=== PATIENT | male | born 1985 | race Two or more races ===

== ENCOUNTER 2019-12-12 17:07 | Emergency (ER) | payer SELFPAY ==
[~2019-12-12] VITALS: Ht 170.2 cm; Wt 59.0 kg
[2019-12-12 17:11] VITALS: BP 119/74
== END 2019-12-12 18:14 | disposition home or self-care (01) ==
LOC: ER 17:07
DX: J02.9 Acute pharyngitis, unspecified (principal); R07.89 Other chest pain; R06.02 Shortness of breath
CPT/HCPCS: 99283

== ENCOUNTER 2020-12-30 02:28 | Emergency (ER) | payer SELFPAY ==
[~2020-12-30] VITALS: Ht 167.6 cm; Wt 60.4 kg
[2020-12-30] MEDS ORDERED: ONDANSETRON HCL 4MG/2ML INJ IV STA (03:08)
[2020-12-30] MEDS ORDERED: KETOROLAC 30MG/ML VIAL IV STA (03:08)
[2020-12-30] MEDS ORDERED: SODIUM CHLORIDE 0.9% 1,000 ML IV ONE (03:15)
[2020-12-30 03:29] LABS: BASOPHILS % 0.5 % (0.0-2.0); EOSINOPHILS % 2.1 % (0.0-5.0); HEMATOCRIT. 43.2 % (42.0-52.0); LYMPHOCYTES % 21.6 % (20.0-50.0); MEAN CORPUSCULAR HEMOGLOBIN 26.8 pg (28.0-32.0); MEAN CORPUSCULAR VOLUME 77.2 fL (80.0-94.0); MEAN PLATELET VOLUME 8.4 fl (7.4-10.4); MONOCYTES % 7.3 % (2.0-8.0); NEUTROPHILS % 68.5 % (40.0-76.0); PLATELET 297 x1000/uL (130-400); RED CELL DISTRIBUTION WIDTH 12.8 % (11.6-14.6)
[2020-12-30 03:42] LABS: CHLORIDE 102 mEq/L (98-107)
[2020-12-30] MEDS ORDERED: IBUP-2029 MT (05:04)
[2020-12-30] MEDS ORDERED: TAMS-11 MT (05:04)
[2020-12-30 05:23] LABS: CLARITY URINE CLEAR (CLEAR); COLOR URINE YELLOW (YELLOW); KETONES URINE NEGATIVE (NEGATIVE); LEUKOCYTE ESTERASE URINE TRACE (NEGATIVE); NITRITE URINE NEGATIVE (NEGATIVE); OCCULT BLOOD URINE 2+ (NEGATIVE); PH URINE 7.5 (4.5-8.0); PROTEIN URINE NEGATIVE (NEGATIVE); SPECIFIC GRAVITY URINE 1.007 (1.005-1.030); UROBILINOGEN URINE 0.2 E.U./dL (0.2-1.0)
[2020-12-30 05:50] VITALS: BP 129/69
== END 2020-12-30 06:23 | disposition home or self-care (01) ==
LOC: ER 02:28
DX: N13.2 Hydronephrosis with renal and ureteral calculous obstruction (principal); Z90.49 Acquired absence of other specified parts of digestive tract
CPT/HCPCS: 36415; 74176; 80053; 81003; 83690; 85025; 96361; 96374; 96375; 99284; J1885; J2405; J7030

== ENCOUNTER 2021-02-26 16:44 | Emergency (ER) | payer OTHER ==
[~2021-02-26] VITALS: Ht 165.1 cm; Wt 60.0 kg
[~2021-02-26 16:44] MED LIST: IBUP-2029 MT; TAMS-11 MT
[2021-02-26] MEDS ORDERED: KETOROLAC 60MG/2ML VIAL IM ONE (18:15)
[2021-02-26 18:20] LABS: CLARITY URINE CLEAR (CLEAR); COLOR URINE DARK YELLOW (YELLOW); KETONES URINE TRACE (NEGATIVE); LEUKOCYTE ESTERASE URINE TRACE (NEGATIVE); NITRITE URINE POSITIVE (NEGATIVE); OCCULT BLOOD URINE 1+ (NEGATIVE); PH URINE 6.5 (4.5-8.0); PROTEIN URINE NEGATIVE (NEGATIVE); SPECIFIC GRAVITY URINE 1.014 (1.005-1.030)
[2021-02-26 18:33] LABS: HEMATOCRIT. 38.9 % (42.0-52.0); HEMOGLOBIN. 13.7 g/dL (14.0-18.0); MEAN CORPUSCULAR HEMOGLOBIN 26.9 pg (28.0-32.0); MEAN CORPUSCULAR VOLUME 76.4 fL (80.0-94.0); MEAN PLATELET VOLUME 8.4 fl (7.4-10.4); PLATELET 248 x1000/uL (130-400); RED BLOOD CELL COUNT 5.09 mill/uL (4.7-6.1); RED CELL DISTRIBUTION WIDTH 12.9 % (11.6-14.6)
[2021-02-26 18:40] LABS: CHLORIDE 103 mEq/L (98-107)
[2021-02-26 19:33] LABS: PLATELET ESTIMATE NORMAL
[2021-02-26] MEDS ORDERED: IBUP-2028 MT (20:15)
[2021-02-26] MEDS ORDERED: TAMS-11 MT (20:15)
[2021-02-26] MEDS ORDERED: CIPR-263 MT (20:15)
[2021-02-26 20:25] VITALS: BP 118/73
== END 2021-02-26 20:32 | disposition home or self-care (01) ==
LOC: ER 16:44
DX: N23 Unspecified renal colic (principal); K80.20 Calculus of gallbladder without cholecystitis without obstruction; Z87.442 Personal history of urinary calculi; Z98.890 Other specified postprocedural states
CPT/HCPCS: 36415; 76700; 80053; 81003; 83690; 85025; 96372; 99284; J1885

== ENCOUNTER 2024-07-10 21:24 | Emergency (ER) | payer MEDICAID, OTHER ==
[~2024-07-10] VITALS: Ht 162.6 cm; Wt 65.0 kg
[~2024-07-10 21:24] MED LIST changes: +CIPR-263 MT; +IBUP-2028 MT
[2024-07-10 21:30] VITALS: BP 122/76; RESP 17; TEMP 98.8; O2SAT 97
[2024-07-10 21:36] VITALS: PULSE 107; O2SAT 100
[2024-07-10] MEDS ORDERED: KETOROLAC 15MG/ML VIAL IM ONE (21:45)
[2024-07-10] MEDS ORDERED: NAPR-1176 MT (23:12)
[2024-07-10] MEDS ORDERED: LIDO700A15 TP (23:12)
[2024-07-11] MEDS: KETOROLAC 15MG/ML VIAL IM NR (00:05)
== END 2024-07-11 00:08 | disposition home or self-care (01) ==
LOC: ER 21:24
DX: M25.562 Pain in left knee (principal); Z90.49 Acquired absence of other specified parts of digestive tract; Z79.899 Other long term (current) drug therapy; V49.49XA Driver injured in collision with other motor vehicles in traffic accident, initial encounter; Y93.89 Activity, other specified; Y92.89 Other specified places as the place of occurrence of the external cause; Y99.8 Other external cause status
CPT/HCPCS: 73562; 99283; 96372; J1885; Z7610